=== PATIENT | male | born 1950 | race Hispanic/Latino ===

== ENCOUNTER 2023-08-10 05:56 | Inpatient (IN) | payer OTHER ==
[~2023-08-10] VITALS: Ht 162.6 cm; Wt 65.0 kg
[2023-08-10 06:43] LABS: EOSINOPHILS # (AUTO) 0.01 K/uL (0.00-0.70); EOSINOPHILS % (AUTO) 0.3 % (0.0-8.0); HEMATOCRIT 36.7 % (42-54); IMMATURE GRANULOCYTE ABSOLUTE 0.01 K/uL (0-1); LYMPHOCYTES # (AUTO) 0.3 K/uL (1.0-4.8); LYMPHOCYTES % (AUTO) 9.9 % (21.0-51.0); MEAN CORPUSCULAR HEMOGLOBIN 31.2 pg (27.0-33.0); MEAN CORPUSCULAR HGB CONC 33.8 g/dL (32.0-36.0); MEAN CORPUSCULAR VOLUME 92.4 fL (79-99); MONOCYTES # (AUTO) 0.2 K/uL (0.1-1.0); MONOCYTES % (AUTO) 7.5 % (3.0-13.0); NEUTROPHILS # (AUTO) 2.6 K/uL (1.8-7.7); PLATELET COUNT (AUTO) 81 K/uL (130-400); RED BLOOD CELL COUNT(AUTO) 3.97 MIL/uL (4.50-6.20); RED CELL DISTRIBUTION WIDTH 15.8 % (11.0-15.5); WHITE BLOOD COUNT (AUTO) 3.2 K/uL (4.8-10.8)
[2023-08-10] MEDS: METOCLOPRAMIDE 10 MG/2 ML VIAL IVP ONE (06:49)
[2023-08-10] MEDS: PANTOPRAZOLE 40 MG/VIAL IVP ONE (06:49)
[2023-08-10] MEDS: OCTREOTIDE ACETATE 100 MCG/ML AMP IV ONE (06:50)
[2023-08-10 06:51] LABS: ALBUMIN 2.2 g/dL (3.5-5.0); CREATININE 0.8 mg/dL (0.5-1.5); POTASSIUM 4.1 mmol/L (3.5-5.1); TOTAL PROTEIN, SERUM 7.8 g/dL (6.0-8.3)
[2023-08-10 06:55] LABS: SARS-CoV-2, RNA, NAAT NEGATIVE SARS CoV-2 (NEGATIVE)
[2023-08-10 06:59] LABS: INFLUENZA TYPE A Negative For Type A (NEGATIVE); INFLUENZA TYPE B Negative For Type B (NEGATIVE)
[2023-08-10] MEDS ORDERED: COMPOUND IV REFRIGERATED 1 EACH IVSOLN MISC PRN (07:00)
[2023-08-10] MEDS ORDERED: COMPOUND IV MISC 1 EACH IVSOLN MISC PRN (07:00)
[2023-08-10 07:04] LABS: ALCOHOL, BLOOD < 3 mg/dL (0-10); AMMONIA 25 umol/L (11-32)
[2023-08-10 07:16] LABS: CREATINE KINASE, TOTAL 55 U/L (21-232)
[2023-08-10] MEDS ORDERED: ARTIFICAL TEARS SOL 15 ML OP PRN (08:00)
[2023-08-10] MEDS ORDERED: ALBUTEROL 0.083% 2.5 MG/3 ML INH IH PRN (08:00)
[2023-08-10] MEDS ORDERED: HYDRALAZINE 25MG TABLET PO PRN (08:00)
[2023-08-10] MEDS ORDERED: DiphenhydrAMINE HCL 50 MG/ML VIAL IV PRN (08:00)
[2023-08-10] MEDS ORDERED: LIDOCAINE HCL 2% VISCOUS 30 ML, MAG/ALUM/SIMETH 30ML 30 ML, DICYCLOMINE HCL 20 MG PO PRN (08:00)
[2023-08-10] MEDS: OCTREOTIDE ACETATE 1,250 MCG in 0.9% NACL 250ML 250 ML IV SCH (08:23)
[2023-08-10] MEDS: PANTOPRAZOLE 40MG INJ 80 MG in 0.9%NACL 100ML 100 ML IVP SCH (08:23)
[2023-08-10] MEDS ORDERED: IOHEXOL 350 MG/ML 100ML INFUS..BTL IV ONE (08:27)
[2023-08-10 08:53] LABS: INR 1.22 (0.85-1.15)
[2023-08-10] MEDS: CEFTRIAXONE 2GM VIAL IVPB SCH (09:10)
[2023-08-10 10:31] LABS: AMPHET/METH SCREEN,URINE NEGATIVE (NEGATIVE); BARBITURATE SCREEN, URINE NEGATIVE (NEGATIVE); BENZODIAZEPINES SCREEN,URINE NEGATIVE (NEGATIVE); CANNABINOID SCREEN,URINE NEGATIVE (NEGATIVE); COCAINE SCREEN,URINE NEGATIVE (NEGATIVE); OPIATE SCREEN,URINE NEGATIVE (NEGATIVE); PHENCYCLIDINE SCREEN,URINE NEGATIVE (NEGATIVE)
[2023-08-10 11:27] LABS: APPEARANCE,URINE CLEAR (CLEAR); BILIRUBIN,URINE NEGATIVE (NEGATIVE); COLOR,URINE YELLOW (YELLOW); GLUCOSE, URINE (UA) NEGATIVE (NEGATIVE); KETONES,URINE 10 mg/dL (NEGATIVE); LEUKOCYTE ESTERASE ,URINE NEGATIVE Leu/uL (NEGATIVE); NITRATE,URINE NEGATIVE (NEGATIVE); OCCULT BLOOD,URINE NEGATIVE (NEGATIVE); PH,URINE 6.5 (5.0-8.0); PROTEIN,URINE 10 mg/dL (NEGATIVE); UROBILINOGEN,URINE 6 mg/dL (0.2-1.0)
[2023-08-10] MEDS: INSULIN HUMULIN R 100 UNIT/ML 3ML SQ SCH (11:30)
[2023-08-10 11:33] LABS: ADD UA MICROSCOPIC YES
[2023-08-10 11:41] LABS: MUCUS,URINE RARE LPF (None Seen); WBC,URINE 0-1 /HPF (0-1)
[2023-08-10 12:31] LABS: HEMATOCRIT 34.9 % (42-54)
[2023-08-10 16:00] VITALS: O2SAT 98
[2023-08-10 18:00] VITALS: BP 116/74; PULSE 75; RESP 19
[2023-08-10] MEDS ORDERED: LACT10SO85 PO (18:03)
[2023-08-10] MEDS ORDERED: PANT40TA54 PO (18:03)
[2023-08-10] MEDS ORDERED: FURO20TA4 PO (18:03)
[2023-08-10] MEDS ORDERED: TAMS-1 PO (18:03)
[2023-08-10] MEDS ORDERED: ESCI-8 PO (18:03)
[2023-08-10] MEDS ORDERED: CHOL2000 PO (18:03)
[2023-08-10] MEDS ORDERED: AMMO385C4 TP (18:03)
[2023-08-10] MEDS ORDERED: LORA10TA7 PO (18:03)
[2023-08-10] MEDS ORDERED: FERS325 PO (18:03)
[2023-08-10 18:15] LABS: HEMATOCRIT 35.9 % (42-54)
[2023-08-10] MEDS ORDERED: PHARMACY COMMUNICATION MISC PRN (19:00)
[2023-08-10] MEDS ORDERED: LORAZEPAM 2 MG/ML 1 ML VIAL IVP PRN (19:00)
[2023-08-10] MEDS ORDERED: CHLORDIAZEPOXIDE HCL 25 MG CAP PO PRN (19:00)
[2023-08-10 20:00] VITALS: BP 112/70; PULSE 75; RESP 16; O2SAT 98
[2023-08-10] MEDS: THIAMINE HCL 100 MG/ML 2ML VIAL IVP SCH (20:22)
[2023-08-10 23:33] LABS: HEMATOCRIT 34.1 % (42-54)
[2023-08-11] VITALS (8 sets, daily range): BP systolic 100–126; BP diastolic 72–83; PULSE 65–85; RESP 13–24; O2SAT 96–100
[2023-08-11 04:13] LABS: HEMATOCRIT 34.8 % (42-54); MEAN CORPUSCULAR HEMOGLOBIN 30.8 pg (27.0-33.0); MEAN CORPUSCULAR HGB CONC 32.8 g/dL (32.0-36.0); MEAN CORPUSCULAR VOLUME 94.1 fL (79-99); PLATELET COUNT (AUTO) 76 K/uL (130-400); RED CELL DISTRIBUTION WIDTH 16.1 % (11.0-15.5); WHITE BLOOD COUNT (AUTO) 2.3 K/uL (4.8-10.8)
[2023-08-11 04:26] LABS: ALBUMIN 1.8 g/dL (3.5-5.0); BILIRUBIN,TOTAL 1.6 mg/dL (0.2-1.0); CREATININE 0.7 mg/dL (0.5-1.5); MAGNESIUM 1.7 mg/dL (1.80-2.40); POTASSIUM 3.6 mmol/L (3.5-5.1); THYROID STIMULATING HORMONE 0.47 uIU/mL (0.36-3.74); TOTAL PROTEIN, SERUM 6.7 g/dL (6.0-8.3)
[2023-08-11 04:32] LABS: BASOPHILS % (MANUAL) 1 % (0-2); EOSINOPHILS % (MANUAL) 1 % (1-6); HEMOGLOBIN A1C 4.2 % (4.0-6.0); LYMPHOCYTES % (MANUAL) 32 % (22-44); MONOCYTES % (MANUAL) 8 % (2-9); SEGMENTED NEUTROPHILS % 58 % (40-70); TOTAL CELLS COUNTED 100
[2023-08-11 04:33] LABS: MAN.DIFF COMMENT-IMPRESSION MANUAL DIFFERENTIAL; PLATELET MORPHOLOGY COMMENT DECREASED
[2023-08-11 08:23] LABS: HEMATOCRIT 34.9 % (42-54)
[2023-08-11] MEDS: VITAMIN D3 50 MCG PO SCH (08:51)
[2023-08-11] MEDS: LORATADINE 10 MG TABLET PO SCH (08:51)
[2023-08-11] MEDS: TAMSULOSIN HCL 0.4 MG CAP.ER.24H PO SCH (08:51)
[2023-08-11] MEDS: MULTIVITAMIN TABLET PO SCH (08:51)
[2023-08-11] MEDS: LACTULOSE 20 GM/30 ML UDCUP PO SCH (08:51)
[2023-08-11] MEDS: FOLIC ACID 1 MG TABLET PO SCH (08:51)
[2023-08-11] MEDS: FUROSEMIDE 20 MG TABLET PO SCH (08:51)
[2023-08-11] MEDS: CITALOPRAM 20 MG TABLET PO SCH (08:51)
[2023-08-11] MEDS: AMMONIUM LACTATE 226GM LOTION TP SCH (08:52)
[2023-08-11] MEDS ORDERED: NON-FORMULARY MEDICATION 1 EACH (Escitalopram Oxalate 10 MG) PO SCH (09:00)
[2023-08-11] MEDS ORDERED: AMMONIUM LACTATE TP SCH (09:00)
[2023-08-11] MEDS ORDERED: GLUCAGON 1MG KIT 1 MG ML IM PRN (10:00)
[2023-08-11] MEDS ORDERED: POTASSIUM CHLORIDE 20MEQ/100ML 100 ML IV PRN ×2 (10:00)
[2023-08-11] MEDS ORDERED: POTASSIUM CHLORIDE 10% ELIXIR 20 MEQ/15 ML UDCUP PO PRN (10:00)
[2023-08-11] MEDS ORDERED: DEXTROSE 50%-WATER 50 ML DISP.SYRIN IV PRN (10:00)
[2023-08-11] MEDS ORDERED: MAGNESIUM 2GM PREMIX 50ML 50 ML IV PRN (10:00)
[2023-08-11] MEDS ORDERED: PROPOFOL 10 MG/ML 20ML VIAL IV ONE (12:05)
[2023-08-11] MEDS: PANTOPRAZOLE 40 MG/VIAL IVP SCH (21:44)
[2023-08-12] VITALS (8 sets, daily range): BP systolic 97–116; BP diastolic 62–76; PULSE 66–81; RESP 15–20; O2SAT 100
[2023-08-12 04:33] LABS: BASOPHILS # (AUTO) 0.01 K/uL (0.00-0.20); BASOPHILS % (AUTO) 0.4 % (0.0-5.0); EOSINOPHILS # (AUTO) 0.08 K/uL (0.00-0.70); EOSINOPHILS % (AUTO) 3.1 % (0.0-8.0); HEMATOCRIT 33.7 % (42-54); IMMATURE GRANULOCYTE ABSOLUTE 0.01 K/uL (0-1); LYMPHOCYTES # (AUTO) 0.7 K/uL (1.0-4.8); LYMPHOCYTES % (AUTO) 27.6 % (21.0-51.0); MEAN CORPUSCULAR HGB CONC 32.9 g/dL (32.0-36.0); MEAN CORPUSCULAR VOLUME 94.1 fL (79-99); MONOCYTES # (AUTO) 0.4 K/uL (0.1-1.0); MONOCYTES % (AUTO) 14.6 % (3.0-13.0); NEUTROPHILS # (AUTO) 1.4 K/uL (1.8-7.7); NEUTROPHILS % (AUTO) 53.9 % (40.0-77.0); PLATELET COUNT (AUTO) 68 K/uL (130-400); RED BLOOD CELL COUNT(AUTO) 3.58 MIL/uL (4.50-6.20); RED CELL DISTRIBUTION WIDTH 15.5 % (11.0-15.5); WHITE BLOOD COUNT (AUTO) 2.5 K/uL (4.8-10.8)
[2023-08-12 04:59] LABS: ALBUMIN 1.7 g/dL (3.5-5.0); BILIRUBIN,TOTAL 1.3 mg/dL (0.2-1.0); CREATININE 0.8 mg/dL (0.5-1.5); POTASSIUM 3.4 mmol/L (3.5-5.1); TOTAL PROTEIN, SERUM 6.4 g/dL (6.0-8.3)
[2023-08-12 05:39] LABS: BAND NEUTROPHILS % (MANUAL) 3 % (0-2); EOSINOPHILS % (MANUAL) 4 % (1-6); LYMPHOCYTES % (MANUAL) 20 % (22-44); MONOCYTES % (MANUAL) 16 % (2-9); SEGMENTED NEUTROPHILS % 57 % (40-70); TOTAL CELLS COUNTED 100
[2023-08-12 05:40] LABS: MAN.DIFF COMMENT-IMPRESSION MANUAL DIFFERENTIAL; PLATELET MORPHOLOGY COMMENT DECREASED; WBC MORPHOLOGY SMUDGE CELLS 1+
[2023-08-12] MEDS: ALPRAZOLAM 0.5 MG TABLET PO PRN (18:23)
[2023-08-13] VITALS: BP 97/70; PULSE 71; RESP 19
[2023-08-13 04:00] VITALS: BP 110/65; PULSE 66; RESP 18
[2023-08-13 04:13] LABS: BASOPHILS # (AUTO) 0.01 K/uL (0.00-0.20); BASOPHILS % (AUTO) 0.5 % (0.0-5.0); EOSINOPHILS # (AUTO) 0.09 K/uL (0.00-0.70); EOSINOPHILS % (AUTO) 4.1 % (0.0-8.0); HEMATOCRIT 32.9 % (42-54); IMMATURE GRANULOCYTE ABSOLUTE 0.01 K/uL (0-1); LYMPHOCYTES # (AUTO) 0.8 K/uL (1.0-4.8); MEAN CORPUSCULAR HEMOGLOBIN 31.3 pg (27.0-33.0); MEAN CORPUSCULAR HGB CONC 33.4 g/dL (32.0-36.0); MEAN CORPUSCULAR VOLUME 93.5 fL (79-99); MONOCYTES # (AUTO) 0.3 K/uL (0.1-1.0); MONOCYTES % (AUTO) 15.7 % (3.0-13.0); NEUTROPHILS % (AUTO) 44.2 % (40.0-77.0); PLATELET COUNT (AUTO) 69 K/uL (130-400); RED BLOOD CELL COUNT(AUTO) 3.52 MIL/uL (4.50-6.20); RED CELL DISTRIBUTION WIDTH 15.5 % (11.0-15.5); WHITE BLOOD COUNT (AUTO) 2.2 K/uL (4.8-10.8)
[2023-08-13 04:26] LABS: CREATININE 0.7 mg/dL (0.5-1.5); POTASSIUM 3.1 mmol/L (3.5-5.1)
[2023-08-13] MEDS: KCL 20 MEQ ERTAB PO PRN (04:46)
[2023-08-13 08:00] VITALS: BP 91/65; PULSE 69; RESP 14; O2SAT 100
[2023-08-13 12:00] VITALS: BP 92/59; PULSE 69; RESP 16
[2023-08-13] MEDS: ONDANSETRON 4MG INJ IV PRN (14:12)
[2023-08-13] MEDS: ACETAMINOPHEN 325 MG TAB PO PRN (14:49)
== END 2023-08-13 17:25 | disposition home or self-care (01) | DRG 378 ==
LOC: EDH 05:56 → EDHIP 07:58 → OBSVTOIN 07:58 → 2CH 17:35 → 4DH 08-11 17:50
PROVIDERS: ADMIT Internal Medicine; ATTEND Internal Medicine
PROC: 0DJ08ZZ Inspection of Upper Intestinal Tract, Via Natural or Artificial Opening Endoscopic (ICD-10-PCS; principal; 2023-08-11)
DX: K29.61 Other gastritis with bleeding (principal); D61.818 Other pancytopenia; K76.6 Portal hypertension; S22.078A Other fracture of T9-T10 vertebra, initial encounter for closed fracture; Z20.822 Contact with and (suspected) exposure to COVID-19; K70.30 Alcoholic cirrhosis of liver without ascites; K44.9 Diaphragmatic hernia without obstruction or gangrene; R73.9 Hyperglycemia, unspecified; I10 Essential (primary) hypertension; F03.90 Unspecified dementia, unspecified severity, without behavioral disturbance, psychotic disturbance, mood disturbance, and anxiety; F12.90 Cannabis use, unspecified, uncomplicated; K80.20 Calculus of gallbladder without cholecystitis without obstruction; Z66 Do not resuscitate; M79.642 Pain in left hand; F10.20 Alcohol dependence, uncomplicated; I71.40 Abdominal aortic aneurysm, without rupture, unspecified; K31.89 Other diseases of stomach and duodenum; W18.39XA Other fall on same level, initial encounter; Y93.89 Activity, other specified; Y92.89 Other specified places as the place of occurrence of the external cause; Y99.8 Other external cause status
CPT/HCPCS: 36415; 43239; 70450; 71260; 72125; 73120; 74177; 80048; 80053; 80305; 81001; 82140; 82270; 82550; 82948; 83036; 83690; 83735; 84443; 84484; 85014; 85018; 85025; 85027; 85610; 87635; 87804; 88305; 88312; 93005; A4606; C9113; G0378; J0696; J2354; J2405; J2704; J2765; J3411; J7030; J7050; Q9967; A4215; A4222; A4223; A4620; A7002; J3490